=== PATIENT | male | born 1980 | race Hispanic/Latino ===

== ENCOUNTER 2019-07-26 01:12 | Emergency (ER) | payer OTHER ==
[2019-07-26] MEDS ORDERED: ACETAMINOPHEN 325 MG TAB ONE (01:41)
== END 2019-07-26 01:47 ==
LOC: EDH 01:12
DX: S00.81XA Abrasion of other part of head, initial encounter (principal); R07.89 Other chest pain; R42 Dizziness and giddiness; Z72.0 Tobacco use; Y04.2XXA Assault by strike against or bumped into by another person, initial encounter; Y93.89 Activity, other specified; Y92.89 Other specified places as the place of occurrence of the external cause; Y99.8 Other external cause status